=== PATIENT | female | born 2000 | race African-American/Black ===

== ENCOUNTER 2022-12-20 12:04 | Emergency (ER) | payer BC ==
[~2022-12-20 12:04] MED LIST: NAPROSYN250 MG PO; NO MEDS
[2022-12-20] MEDS ORDERED: MACROBID100 M1 PO (13:51)
[2022-12-20 14:22] LABS: URINE BLOOD DIPSTICK Negative (NEGATIVE); URINE GLUCOSE - DIPSTICK 250 mg/dL (NEGATIVE); URINE KETONE 15 mg/dL (NEGATIVE); URINE NITRITE - DIPSTICK Positive (Negative); URINE PROTEIN - DIPSTICK 100 mg/dL (NEG-TRACE); URINE SPECIFIC GRAVITY <=1.005
[2022-12-20 14:23] LABS: URINE BACTERIA FEW hpf; URINE COLOR Orange; URINE EPITHELIAL CELLS FEW EPI/hpf (0-FEW); URINE LEUK ESTERASE Large (NEGATIVE)
[2022-12-20] MEDS ORDERED: BACTRIM DS1 TAB PO (17:55)
== END 2022-12-20 13:09 | disposition left against medical advice (07) | DRG 951 ==
LOC: ED 12:04 → LWOBS 13:00 → ED 13:06 → LWOBS 13:09
PROVIDERS: Family Medicine
DX: Z53.21 Procedure and treatment not carried out due to patient leaving prior to being seen by health care provider (principal)

== ENCOUNTER 2022-12-20 13:43 | Emergency (ER) | payer BC ==
[2022-12-20] MEDS ORDERED: MACROBID100 M1 PO (13:51)
[2022-12-20] MEDS ORDERED: BACTRIM DS1 TAB PO (17:55)
[2022-12-20 17:57] VITALS: BP 140/69
== END 2022-12-20 18:12 | disposition home or self-care (01) | DRG 690 ==
LOC: ED 13:43
DX: N39.0 Urinary tract infection, site not specified (principal)